=== PATIENT | male | born 1965 | race Caucasian/White ===

== ENCOUNTER 2019-11-18 09:43 | Day surgery (SDC) | payer OTHER ==
[2019-11-13 10:46] LABS: BASOPHILS # (AUTO) 0.1 X10'3 (0-0.2); BASOPHILS % (AUTO) 0.6 % (0-1); EOSINOPHILS # (AUTO) 0.2 X10'3 (0-0.9); EOSINOPHILS % (AUTO) 2.4 % (0-6); LYMPHOCYTES # (AUTO) 3.3 X10'3 (1.1-4.8); LYMPHOCYTES % (AUTO) 39.4 % (21-51); MEAN CORPUSCULAR HEMOGLOBIN 32.8 PG (27.0-31.0); MEAN CORPUSCULAR HGB CONC 34.6 g/dL (33.0-36.5); MEAN CORPUSCULAR VOLUME 94.8 FL (78-98); MEAN PLATELET VOLUME 7.3 FL (7.4-10.4); MONOCYTES # (AUTO) 0.5 X10'3 (0-0.9); MONOCYTES % (AUTO) 5.6 % (2-12); NEUTROPHILS # (AUTO) 4.4 X10'3 (1.8-7.7); PRE OP HEMOGLOBIN 16.3 g/dL (14.0-17.9); PRE OP PLATELET COUNT 308 X10'3 (140-440); RED BLOOD COUNT 4.96 X10'6 (4.70-6.10); RED CELL DISTRIBUTION WIDTH 13.5 % (11.5-14.5)
[2019-11-13 11:07] LABS: ALBUMIN 3.9 G/DL (3.4-5.0); ALBUMIN/GLOBULIN RATIO 1.1 (1.1-1.5); ALKALINE PHOSPHATASE 69 IU/L (46-116); BLOOD UREA NITROGEN 17 MG/DL (7-18); BUN/CREATININE RATIO 15.3 (5.4-32.0); CALCIUM 9.1 MG/DL (8.5-10.1); CHLORIDE 105 MMOL/L (99-107); CREATININE 1.11 MG/DL (0.60-1.10); PRE OP ALT 34 U/L (30-65); PRE OP ANION GAP 9 (8-16); PRE OP AST 28 U/L (10-37); PRE OP BILIRUB, TOTAL 0.6 MG/DL (0.0-1.0); PRE OP GLUCOSE 86 MG/DL (70-104); PRE OP POTASSIUM 4.1 MMOL/L (3.4-5.1); PRE OP SODIUM 141 MMOL/L (135-145); TOTAL CARBON DIOXIDE 27.5 MMOL/L (24-32); TOTAL PROTEIN 7.4 G/DL (6.4-8.2); eGFR 69 ML/MIN
[~2019-11-18] VITALS: Ht 165.1 cm; Wt 81.0 kg
[~2019-11-18 09:43] MED LIST: ATOR10TA PO; cefazolin/dext.iso 2gm/100ml 100 ML IV ONE; famotidine 20mg tablet PO ONE; meperidine/PF 25mg/ml syringe IV PRN; morphine 2 MG/ML inj. syringe IV PRN; morphine 4 MG/ML inj SYRINge IV PRN; ondansetron/PF 4mg/2ml inj IV PRN; proCHLORperazine 10 MG/2 ml inj IV PRN; ringers solution, lacted 1,000 ML IV SCH
[2019-11-18 09:50] VITALS: BP 122/77
[2019-11-18] MEDS ORDERED: epiNEPHrine 1 mg/ml 30ml MDV ONE (13:10)
[2019-11-18] MEDS ORDERED: BUPIVAcaine/PF 2.5mg/ml (0.25%) 10ml vial ONE (14:14)
[2019-11-18] MEDS ORDERED: dexamethasone sod phosphate 10mg/ml inj ONE (14:28)
[2019-11-18] MEDS ORDERED: sevoflurane 250ml liquid IH ONE (14:28)
[2019-11-18] MEDS ORDERED: MIDAZolam 5mg/5ml vial ONE (14:31)
[2019-11-18] MEDS ORDERED: fentaNYL/PF 50MCG/1 ML 2ML syringe ONE (14:31)
[2019-11-18] MEDS ORDERED: ROPIVAcaine 0.5% (5mg/ml) 30ml vial ONE (14:32)
[2019-11-18] MEDS ORDERED: propofol inj 20 ML IV ONE ×2 (15:14)
[2019-11-18] MEDS ORDERED: LIDOcaine 2% (20mg/ml) 5ml vial ONE (15:15)
[2019-11-18] MEDS ORDERED: ondansetron/PF 4mg/2ml inj ONE (15:47)
[2019-11-18] MEDS ORDERED: ROPIVAcaine 0.2%/PF PUMP/bolus 550 ML INTERSCALE SCH ×2 (16:43→16:48)
[2019-11-18] MEDS ORDERED: ROPIVAcaine 0.2% (10 MG/5 ML) BOLUS INJECTION INTERSCALE PRN ×2 (16:45→16:50)
--- NOTE | 2019-11-18 17:10 | NUR ---
Received from OR via rochelle, accompanied by Anesthesiologist ROMA and report given by Anesthesiolgist. VS WNL, mask to 10L and sats 98%, 20G right forearm with LR IVF at 100cc/hr. Shoulder surgical site has gauze and silk tape, CDI, sling present. Good cap refill to fingers.
[2019-11-18 17:13] VITALS: BP 149/95
[2019-11-18 17:23] VITALS: BP 141/93
[2019-11-18 17:33] VITALS: BP 140/89
[2019-11-18 17:43] VITALS: BP 147/84
[2019-11-18 17:53] VITALS: BP 143/83
--- NOTE | 2019-11-18 18:23 | NUR ---
Patient discharged from PACU via wheelchair to vehicle without incident. Pt and S/O have verbalized understanding of extensive teaching received on the usage of ON-Q ball, and all other DC instructions. Pain script filled and already at home. Dressings remain CDI, immobilizer sling on. Follow up appointment made.
== END 2019-11-18 18:23 | disposition home or self-care (01) ==
LOC: PAS 09:43
PROVIDERS: ATTEND Orthopaedic Surgery
DX: M75.102 Unspecified rotator cuff tear or rupture of left shoulder, not specified as traumatic (principal); K21.9 Gastro-esophageal reflux disease without esophagitis; E78.5 Hyperlipidemia, unspecified; M75.22 Bicipital tendinitis, left shoulder; Z98.890 Other specified postprocedural states; Z87.891 Personal history of nicotine dependence; Z88.6 Allergy status to analgesic agent
CPT/HCPCS: 23430; 29824; 29826; 29827; 36415; 64416; 76942; 80053; 82948; 85025; 93005; C1713; J0171; J1100; J2001; J2250; J2405; J2704; J2795; J3010; J3490; J7120; A4215; A4565; A4618; A6258; A6449; A7000